=== PATIENT | female | born 1995 | race Caucasian/White ===

== ENCOUNTER 2016-07-11 17:29 | Emergency (ER) | payer OTHER ==
[2016-07-11 17:43] VITALS: RESP 16
[2016-07-11] MEDS ORDERED: NS 1,000 ML IV ONE (17:52)
--- NOTE | 2016-07-11 18:06 | CPEKG ---
Heart Rate: 75 RR Interval: 800 P-R Interval: 136 QRSD Interval: 100 QT Interval: 368 QTC Interval: 411 P [place]: 80 QRS [place]: 88 T Wave [place]: 75 EKG Severity - NORMAL ECG - EKG Impression: SINUS RHYTHM Electronically Signed By: Conor Rascon 12-Jul-2016 23:49:01
[2016-07-11 18:22] LABS: % IMMATURE GRANULYOCYTES 0.4 % (0.0-1.1); ABSOLUTE IMMATURE GRANULOCYTES 0.03 10^3/uL (0.00-0.10); ADD DIFF? NO; ADD MORPH? NO; ADD SCAN? NO; ATYPICAL LYMPHOCYTE FLAG 30 (0-99); FRAGMENT RBC FLAG 0 (0-99); HEMATOCRIT 35.3 % (38.0-47.0); HEMOGLOBIN 12.1 g/dL (12.6-16.3); LEFT SHIFT FLG 0 (0-99); LIPEMIA HEMOLYSIS FLAG 90 (0-99); MEAN CELL HEMOGLOBIN CONCENTR. 34.3 g/dL (32.4-36.7); MEAN CELL VOLUME 90.5 fL (81.5-99.8); MEAN PLATELET VOLUME 9.5 fL (8.7-11.7); PLATELET CLUMPS FLAG 0 (0-99); PLATELET COUNT 254 10^3/uL (150-400); RED CELL DISTRIBUTION WIDTH 12.5 % (11.5-15.2)
[2016-07-11 18:52] LABS: ANION GAP 9 mEq/L (8-16); CALCIUM 9.3 mg/dL (8.5-10.4); CARBON DIOXIDE 22 mEq/l (22-31); CHLORIDE 104 mEq/L (97-110); CREATININE 0.9 mg/dL (0.6-1.0); GLOMERULAR FILTRATION RATE > 60; GLUCOSE 96 mg/dL (70-100); POTASSIUM 3.8 mEq/L (3.5-5.2); SODIUM 135 mEq/L (134-144)
--- NOTE | 2016-07-11 19:11 | EDPHY ---
H & P Stated Complaint[facility] upper lip/thc not eating much Time Seen by Provider: 07/11/16 17:46 HPI/ROS: Chief Complaint: Syncope HPI: [age]-year-old female [facility] Patient states that she has had these in the past. She has not been eating or drinking much fluid lately. No chest pain or shortness of breath. No nausea or vomiting. Last menstrual. Was a month ago. Patient does not believe that she is she has not been sexually active since her last menstrual.. No vaginal bleeding or discharge. No chest pain or palpitations. Did not hit her head. Did strike her face and has an abrasion on the inside of her lip. Does not feel that her teeth are loose. ROS: 10 point Review of Systems is negative except as noted in the HPI. PMH: Syncope Social History: Positive smoking, occasional alcohol, daily marijuana Family History: non-contributory Physical Exam: Gen: Awake, Alert, No Distress HEENT: Nose: no rhinorrhea Eyes: PERRLA, EOMI Mouth: Moist mucosa small upper lip inner mucosal abrasion, no active bleeding. Normal dentition Neck: Supple, no JVD Chest: nontender, lungs clear to auscultation Heart: S1, S2 normal, no murmur Abd: Soft, non-tender, no guarding Back: no CVA tenderness, no midline tenderness Ext: no edema, non-tender Skin: no rash Neuro: CN II-XII intact, Sensation grossly intact, Strength 5/5 in bilateral upper and lower extremities - Personal History LMP (Females 10-55): 22-28 Days Ago Current Tetanus/Diphtheria Vaccine: Unsure - Medical/Surgical History Hx Asthma: No Hx Chronic Respiratory Disease: No Hx Diabetes: No Hx Cardiac Disease: No Hx Renal Disease: No Hx Cirrhosis: No Hx Alcoholism: No Hx HIV/AIDS: No Hx Splenectomy or Spleen Trauma: No Other PMH: denies - Social History Smoking Status: Current every day smoker Constitutional: Initial Vital Signs Temperature (C) 36.5 C 07/11/16 17:33 Heart Rate 89 07/11/16 17:33 Respiratory Rate 16 07/11/16 17:33 Blood Pressure 105/68 07/11/16 17:33 O2 Sat (%) 96 07/11/16 17:33 O2 Delivery Mode Room Air Allergies/Adverse Reactions: No Known Allergies Allergy (Unverified 07/11/16 17:33) Home Medications: Medication Instructions Recorded NK [No Known Home Meds] 07/11/16 Medical Decision Making ED Course/Re-evaluation: 20-year-old female with a syncopal episode. She has history of these in the past. She has not been eating or drinking adequately. She has been given a L fluid here. Blood work is entirely normal she is not anemic. She is not . She is doing on ambulating here. Will discharge with instructions to follow up as an outpatient, return for worsening. - Data Points Laboratory Results: Laboratory Results 07/11/16 18:04 07/11/16 18:04 07/11/16 07/11/16 07/11/16 18:04 18:04 18:04 WBC 8.37 10^3/uL 10^3/uL (3.80-9.50) RBC 3.90 10^6/uL L 10^6/uL (4.18-5.33) Hgb 12.1 g/dL L g/dL (12.6-16.3) Hct 35.3 % L % (38.0-47.0) MCV 90.5 fL fL (81.5-99.8) MCH 31.0 pg pg (27.9-34.1) MCHC 34.3 g/dL g/dL (32.4-36.7) RDW 12.5 % % (11.5-15.2) Plt Count 254 10^3/uL 10^3/uL (150-400) MPV 9.5 fL fL (8.7-11.7) Neut % (Auto) 67.4 % % (39.3-74.2) Lymph % (Auto) 24.9 % % (15.0-45.0) [place] % (Auto) 5.7 % % (4.5-13.0) Eos % (Auto) 1.4 % % (0.6-7.6) Baso % (Auto) 0.2 % L % (0.3-1.7) Nucleat RBC Rel Count 0.0 % % (0.0-0.2) Absolute Neuts (auto) 5.64 10^3/uL 10^3/uL (1.70-6.50) Absolute Lymphs (auto) 2.08 10^3/uL 10^3/uL (1.00-3.00) Absolute Monos (auto) 0.48 10^3/uL 10^3/uL (0.30-0.80) Absolute Eos (auto) 0.12 10^3/uL 10^3/uL (0.03-0.40) Absolute Basos (auto) 0.02 10^3/uL 10^3/uL (0.02-0.10) Absolute Nucleated RBC 0.00 10^3/uL 10^3/uL (0-0.01) Immature Gran % 0.4 % % (0.0-1.1) Immature Gran # 0.03 10^3/uL 10^3/uL (0.00-0.10) Sodium 135 mEq/L mEq/L (134-144) Potassium 3.8 mEq/L mEq/L (3.5-5.2) Chloride 104 mEq/L mEq/L (97-110) Carbon Dioxide 22 mEq/l mEq/l (22-31) Anion Gap 9 mEq/L mEq/L (8-16) BUN 11 mg/dL mg/dL (7-23) Creatinine 0.9 mg/dL mg/dL (0.6-1.0) Estimated GFR > 60 Glucose 96 mg/dL mg/dL (70-100) Calcium 9.3 mg/dL mg/dL (8.5-10.4) Beta HCG, Qual NEGATIVE Medications Given: Discontinued Medications Sodium Chloride (Ns) 1,000 mls @ 0 mls/hr IV ONCE ONE PRN Reason: Wide Open Stop: 07/11/16 17:53 Last Admin: 07/11/16 18:10 Dose: 1,000 mls Departure - Departure Disposition: Home, Routine, Self-Care Clinical Impression: Syncope Condition: Good Instructions: Syncope (ED) Additional Instructions: Please make sure to eat and drink plenty of fluids. [facility] resources for food. Follow up with primary care physician in 3-4 days. Return to the ED for further fainting, chest pain, shortness of breath, palpitations, or any other concerns. Referrals: NONE *PRIMARY CARE P,. [Primary Care Provider] - As per Instructions [facility],. [Clinic] - As per Instructions
[2016-07-11 19:30] VITALS: BP 105/57; PULSE 83; TEMP 98.2; O2SAT 97
== END 2016-07-11 19:29 | disposition home or self-care (01) ==
DX: R55 Syncope and collapse (principal); F17.200 Nicotine dependence, unspecified, uncomplicated